=== PATIENT | female | born 1995 | race Caucasian/White ===

== ENCOUNTER 2017-12-12 20:32 | Emergency (ER) | payer SELFPAY ==
[~2017-12-12] VITALS: Ht 160 cm; Wt 58.1 kg
[2017-12-12 22:08] LABS: HEMATOCRIT 43.5 % (36.0-46.0); HEMOGLOBIN 15.4 G/DL (11.9-15.5); MCH 32.1 PG (29.0-34.0); MCHC 35.4 G/DL (30.0-36.0); MCV 90.6 FL (83-99); PLATELET COUNT 260 K/uL (156-360); RBC DIS.WIDTH-CV 11.9 % (11.8-14.6); RBC DIS.WIDTH-SD 39.5 % (39-53); WHITE BLOOD COUNT 10.3 K/uL (4.1-10.2)
[2017-12-12 22:19] LABS: CHLORIDE 107 mEq/L (99-109); POTASSIUM 3.8 mEq/L (3.7-5.4); SODIUM 140 mEq/L (136-147)
[2017-12-12 22:21] LABS: GLUCOSE 107 mg/dL (70-99)
[2017-12-12 22:24] LABS: SERUM ETHYL ALCOHOL < 10 mg/dL
[2017-12-12 22:25] LABS: CREATININE 0.7 mg/dL (0.6-1.3); GFR ESTIMATE (CALCULATED) > 59 mL/min/
[2017-12-12 22:26] LABS: UREA NITROGEN (BUN) 16 mg/dL (9-23)
[2017-12-12 23:31] LABS: THYROTROPIN (TSH) 3.5 MIU/L (0.4-5.5)
[2017-12-12 23:49] LABS: APPEARANCE CLEAR ((CLEAR)); BILIRUBIN NEGATIVE; BLOOD NEGATIVE; COLOR YELLOW ((YELLOW)); GLUCOSE (STRIP) NEGATIVE; KETONES NEGATIVE; LEUKOCYTES NEGATIVE; NITRITE NEGATIVE; PROTEIN (STRIP) NEGATIVE; UCUL ADDED? NO; UROBILINOGEN 0.2 MG/DL (0.2-1.0)
[2017-12-12 23:59] LABS: AMPHETAMINE NEGATIVE (500 ng/mL); BARBITURATES NEGATIVE (200 ng/mL); BENZODIAZEPINES NEGATIVE (150 ng/mL); BUPRENORPHINE NEGATIVE (10 ng/mL); COCAINE NEGATIVE (150 ng/mL); METHADONE NEGATIVE (200 ng/mL); METHAMPHETAMINE NEGATIVE (500 ng/mL); OPIATES (MORPHINE) NEGATIVE (100 ng/mL); OXYCODONE NEGATIVE (100 ng/mL); PHENCYCLIDINE NEGATIVE (25 ng/mL); PROPOXYPHENE NEGATIVE (300 ng/mL); THC CANNABINOIDS PRESUMPTIVE POSITIVE (50 ng/mL); TRICYCLIC ANTIDEPRESSANTS NEGATIVE (300 ng/mL)
[2017-12-13 08:31] VITALS: BP 124/76
== END 2017-12-13 08:35 ==
LOC: EME 20:32
PROVIDERS: Emergency Medicine
DX: F31.13 Bipolar disorder, current episode manic without psychotic features, severe (principal); Z88.0 Allergy status to penicillin
CPT/HCPCS: 80048; 81003; 81025; 84443; 84999; 85027; 90837; 99281; 99285; G0480